=== PATIENT | female | born 1950 | race Caucasian/White ===

== ENCOUNTER 2016-11-14 19:28 | Emergency (ER) | payer OTHER ==
[~2016-11-14] VITALS: Ht 157.5 cm; Wt 55.8 kg
--- NOTE | 2016-11-14 19:42 | NUR ---
Note [email or web address] in EDM - 11/14/16 at 2106 by MURRAY TO BED 3 AMBULATORY C/O SENT FROM URGENT CARE FOR HIGH BP, SBP>200'S. PT AAOX4 NO ACUTE DISTRESS NOTED, RESP EVEN AND UNLABORED. PLACE PT ON CARDIAC MONITORING, CONTINUOUS POX. PENDING ER MD KLEIN.
--- NOTE | 2016-11-14 19:42 | NUR ---
TO BED 3 AMBULATORY C/O HIGH BP, SBP>200'S. PT AAOX4 NO ACUTE DISTRESS NOTED, RESP EVEN AND UNLABORED. PLACE PT ON CARDIAC MONITORING, CONTINUOUS POX. PENDING ER MD KLEIN. PUPILS PERRL, PT ABLE TO MOVE ALL EXTREMITIES WELL WITH BILATERAL EQUAL USED CAR RENOVATOR. PT SON AT BEDSIDE. CALL LIGHT WITHIN REACH.
--- NOTE | 2016-11-14 19:43 | NUR ---
Pt report that she was sent from urgent care due to her blood pressure.
--- NOTE | 2016-11-14 19:53 | NUR ---
Patient reports that she developed numbness to the back of her head, extending down her posterior neck today and diffuse head pressure for the past 3 days. Pt also reports that she has been stressing out this past week.
--- NOTE | 2016-11-14 19:55 | NUR ---
STARTED SL 18G TO R WRIST, BLOOD DRAWN AND SENT TO LAB.
[2016-11-14] MEDS ORDERED: LABETALOL 20 MG/4 ML VIAL IV ONE ×3 (20:00→21:30)
[2016-11-14] MEDS ORDERED: LABETALOL 20 MG/4 ML VIAL ONE ×2 (20:05→21:09)
--- NOTE | 2016-11-14 20:06 | NUR ---
PT TRANSPORTED TO RADIOLOGY FOR CT HEAD.
[2016-11-14 20:10] LABS: BASOPHILS # (AUTO) 0.1 /CMM (0.0-0.2); EOSINOPHILS % (AUTO) 0.4 % (0.0-6.0); HEMATOCRIT 48 % (33-45); HEMOGLOBIN 15.7 g/dL (11.5-14.8); LYMPHOCYTES # (AUTO) 2.2 /CMM (0.8-4.8); LYMPHOCYTES % (AUTO) 29.6 % (20.0-44.0); MEAN CORPUSCULAR HEMOGLOBIN 29 PG (26.0-33.0); MEAN CORPUSCULAR HGB CONC 33 g/dl (31.0-36.0); MEAN CORPUSCULAR VOLUME 87 fL (82-100); MONOCYTES # (AUTO) 0.5 /CMM (0.1-1.30); MONOCYTES % (AUTO) 6.8 % (2.0-12.0); NEUTROPHILS # (AUTO) 4.6 /CMM (1.8-8.9); NEUTROPHILS % (AUTO) 61.2 % (43.0-81.0); PLATELET COUNT (AUTO) 193 /CMM (150-450); RDW COEFFICIENT OF VARIATION 12.8 (11.5-15.0); RED BLOOD CELL COUNT(AUTO) 5.47 MIL/uL (4.0-5.2); WHITE BLOOD COUNT (AUTO) 7.4 K/uL (4.3-11.0)
[2016-11-14 20:19] LABS: CALCIUM, SERUM 9.4 mg/dL (8.5-10.1); CREATININE 0.6 mg/dL (0.6-1.3); POTASSIUM 3.5 mmol/L (3.5-5.1)
[2016-11-14 20:37] LABS: INR 0.93 (0.87-1.13); PROTHROMBIN TIME 9.7 SECS (9.5-12.7)
--- NOTE | 2016-11-14 20:57 | NUR ---
ct result received, er aware.
--- NOTE | 2016-11-14 20:59 | NUR ---
er spoke to Dr. Morillo regarding pt ct head result.
--- NOTE | 2016-11-14 21:14 | NUR ---
ER MD at bedside talking to pt regarding Ct result and transfer for HLOC. pt son remains at bedside.
--- NOTE | 2016-11-14 21:34 | NUR ---
pt medicated by rn per er md order.
--- NOTE | 2016-11-14 21:50 | NUR ---
CALLED [facility] FOR TRANSPORTATION GOING TO [facility] ETA [id number]
--- NOTE | 2016-11-14 21:50 | NUR ---
PATIENT GOING TO [facility] ROOM # [id number], RN TO RN REPORT CAN BE GIVEN AT
--- NOTE | 2016-11-14 22:02 | NUR ---
Report call to [facility]. awaiting transport.
[2016-11-14 22:10] VITALS: BP 176/98
--- NOTE | 2016-11-14 22:15 | NUR ---
[facility] transport at bedside report given to spa manager Shobha.
== END 2016-11-14 22:17 | disposition short-term general hospital (02) ==
LOC: ER 19:28
DX: D32.9 Benign neoplasm of meninges, unspecified (principal); I10 Essential (primary) hypertension
CPT/HCPCS: 36415; 70450; 80048; 85025; 85730; 96374; 96376; 99285; A4606; J3490 ×2; Z7610